=== PATIENT | male | born 1955 ===

== ENCOUNTER 2022-08-08 08:24 | Day surgery (SDC) | payer MEDICARE, BC ==
[~2022-08-08] VITALS: Ht 180.3 cm; Wt 90.5 kg
[2022-08-08] MEDS ORDERED: LISI5 (09:16)
== END 2022-08-08 10:34 | disposition home or self-care (01) ==
LOC: ORSCSDS 08:24
PROVIDERS: Internal Medicine Gastroenterology
PROC: 0DBM8ZX Excision of Descending Colon, Via Natural or Artificial Opening Endoscopic, Diagnostic (ICD-10-PCS; principal; 2022-08-08 09:45)
DX: Z12.11 Encounter for screening for malignant neoplasm of colon (principal); Z86.010 Personal history of colon polyps; Z80.0 Family history of malignant neoplasm of digestive organs; D12.4 Benign neoplasm of descending colon; K64.8 Other hemorrhoids; K57.30 Diverticulosis of large intestine without perforation or abscess without bleeding; Z79.899 Other long term (current) drug therapy
CPT/HCPCS: 88305; J2704; J7120